=== PATIENT | male | born 1990 | race American Indian/Alaskan Native ===

== ENCOUNTER 2017-09-12 12:08 | Emergency (ER) | payer BC ==
--- NOTE | 2017-09-12 12:20 | ED PDOC ---
Arrival/HPI - General Time Seen by Provider: 09/12/17 12:10 Historian: Patient Past Medical History - Provider Review Nursing Documentation Reviewed: Yes Family/Social History - Physician Review Nursing Documentation Reviewed: Yes Family/Social History: Unknown Family HX Allergies/Home Meds Home Medications: Home Meds Medication Instructions Recorded Confirmed Famotidine [Pepcid] 20 mg PO DAILY 09/12/17 09/12/17 Pantoprazole [Protonix EC Tab] 40 mg PO DAILY 09/12/17 09/12/17 Medical Decision Making ED Course and Treatment: 09/12/17 Impression: Differential Diagnosis included but are not limited to: Plan: -- Reassess and disposition Progress Notes: - Scribe Statement The provider has reviewed the documentation as recorded by the Vikki Schaefer Provider Scribe Attestation: All medical record entries made by the Scribe were at my direction and personally dictated by me. I have reviewed the chart and agree that the record accurately reflects my personal performance of the history, physical exam, medical decision making, and the department course for this patient. I have also personally directed, reviewed, and agree with the discharge instructions and disposition.
[2017-09-12 12:21] VITALS: RESP 19; TEMP 98
[2017-09-12] MEDS ORDERED: Atrop/Hyosc/Scopal/PB Elixir (120 ml) PO STA (12:31)
[2017-09-12] MEDS ORDERED: Sodium Chloride 0.9% 1,000 ML IV STA (12:31)
[2017-09-12] MEDS ORDERED: Alum-Mag Hydrox-Simethicone Susp (30 mL) PO STA (12:31)
--- NOTE | 2017-09-12 13:01 | ED PDOC ---
Arrival/HPI - General Historian: Patient - History of Present Illness Time/Duration: < week Symptom Onset: Gradual Activities at Onset: Light Context: Home <Brandon Delvalle - Last Filed: 09/12/17 14:50> <Priyank Angelo DO - Last Filed: 09/12/17 22:25> - General Chief Complaint: GI Problem Time Seen by Provider: 09/12/17 12:10 - History of Present Illness Narrative History of Present Illness (Text): 09/12/17 12:52 This is a 26 year old male with PMH of gastritis and stomach ulcer presenting to the ER for 2 day history of abdominal pain. He admits to diffuse abdominal pain that is constant and rated 10/10. Pain is associated with nausea, diarrhea and vomiting x6. Patient was at [facility] this morning for similar complaint and discharged. He admits to similar symptoms in the past that occur every few months and resolve spontaneously. He states nothing makes the pain better and nothing makes it worse. He denies CP, SOB, fevers, dizziness, melena, hematemesis, hematochezia, headaches, urinary complaints, swelling and recent sickness. He takes pepcid and protonix for gastritis. PCP is Dr. Tovar (Brandon Delvalle) Past Medical History - Provider Review Nursing Documentation Reviewed: Yes - Cardiac Hx Cardiac Disorders: No - Pulmonary Hx Respiratory Disorders: No - Neurological Hx Neurological Disorder: No - HEENT Hx HEENT Disorder: No - Renal Hx Renal Disorder: No - Endocrine/Metabolic Hx Endocrine Disorders: No - Hematological/Oncological Hx Blood Disorders: No - Integumentary Hx Dermatological Disorder: No - Musculoskeletal/Rheumatological Hx Musculoskeletal Disorders: No - Gastrointestinal Hx Gastrointestinal Disorders: Yes Hx Gastritis: Yes - Genitourinary/Gynecological Hx Genitourinary Disorders: No - Psychiatric Hx Psychophysiologic Disorder: No Hx Substance Use: Yes (CANNABIS) - Surgical History Other/Comment: ENDOSCOPY <Brandon Delvalle - Last Filed: 09/12/17 14:50> Family/Social History - Physician Review Nursing Documentation Reviewed: Yes Family/Social History: Unknown Family HX Smoking Status: Heavy Smoker > 10 Cigarettes Daily Hx Alcohol Use: No Hx Substance Use: Yes (CANNABIS) <Brandon Delvalle - Last Filed: 09/12/17 14:50> Allergies/Home Meds <Brandno Delvalle - Last Filed: 09/12/17 14:50> <Priyank Angelo DO - Last Filed: 09/12/17 22:25> Allergies/Adverse Reactions: Allergies No Known Allergies Allergy (Verified 09/12/17 12:23) Home Medications: Home Meds Medication Instructions Recorded Confirmed Famotidine [Pepcid] 20 mg PO DAILY 09/12/17 09/12/17 Pantoprazole [Protonix EC Tab] 40 mg PO DAILY 09/12/17 09/12/17 Review of Systems - Physician Review All systems were reviewed & negative as marked: Yes - Review of Systems Constitutional: Normal. absent: Fevers Eyes: Normal. absent: Vision Changes ENT: Normal. absent: Hearing Changes Respiratory: Normal. absent: SOB, Cough Cardiovascular: Normal. absent: Chest Pain, Palpitations Gastrointestinal: Abdominal Pain, Diarrhea, Nausea, Vomiting. absent: Constipation, Hematochezia, Hematemesis Genitourinary Male: Normal. absent: Dysuria Musculoskeletal: Normal Skin: Normal Neurological: Normal <Brandon Delvalle - Last Filed: 09/12/17 14:50> Physical Exam Vital Signs Reviewed: Yes Temperature: Afebrile Blood Pressure: Normal Pulse: Regular Respiratory Rate: Normal Appearance: Positive for: Well-Appearing, Non-Toxic, Comfortable Pain Distress: None Mental Status: Positive for: Alert and Oriented X 3 - Systems Exam Head: Present: Atraumatic, Normocephalic Pupils: Present: PERRL Extroacular Muscles: Present: EOMI Conjunctiva: Present: Normal Mouth: Present: Moist Mucous Membranes Neck: Present: Normal Range of Motion Respiratory/Chest: Present: Clear to Auscultation, Good Air Exchange. No: Respiratory Distress, Accessory Muscle Use Cardiovascular: Present: Regular Rate and Rhythm, Normal S1, S2. No: Murmurs Abdomen: Present: Tenderness, Normal Bowel Sounds, Other (tenderness in all four quadrants). No: Distention, Peritoneal Signs, Rebound, Guarding, McBurney' s Point Tender, Rovsing's Sign Present Back: Present: Normal Inspection Upper Extremity: Present: Normal Inspection. No: Cyanosis, Edema Lower Extremity: Present: Normal Inspection. No: Edema Neurological: Present: Speech Normal, Motor Func Grossly Intact, Normal Sensory Function Skin: Present: Warm, Dry, Normal Color. No: Rashes Psychiatric: Present: Alert, Normal Insight, Normal Concentration <Brandon Delvalle - Last Filed: 09/12/17 14:50> Vital Signs Temp Pulse Resp BP Pulse Ox 09/12/17 15:06 98 F 85 19 129/63 100 09/12/17 14:43 98 F 85 19 129/53 L 98 09/12/17 12:21 98 F 64 19 139/90 100 Medical Decision Making <Brandon Delvalle - Last Filed: 09/12/17 14:50> - Lab Interpretations I have reviewed the lab results: Yes - RAD Interpretation Ticket Collector: Radiologist <Priyank Angelo DO - Last Filed: 09/12/17 22:25> ED Course and Treatment: 09/12/17 13:05 Impression: This is a 26 year old male with PMH of gastritis and stomach ulcer presenting to the ER for 2 day history of abdominal pain. Differential not limited to: Hyperemesis cannabinoid syndrome vs gastritis vs gastric ulcer vs gastroenteritis vs appendicitis vs peptic ulcer perforation Plan: -Blood work, lipase -Fluids, zofran and pepcid -CT abdomen -Drug screen, U/A Progress: 09/12/17 14:39 CT abdomen: non specific focal gastritis and under distension is a consideration. Infectious/inflammatory colitis and cystitis cannot be excluded. 09/12/17 14:46 Vital signs are stable and afebrile. Patient is able to walk to the bathroom unassisted but continue to complain of nausea and abdominal pain. Will give reglan. (Brandon Delvalle) 09/12/17 In agreement with resident note, which includes further HPI details. Patient was seen and evaluated with resident, came up with plan and treatment together. (Priyank Angelo DO) - Lab Interpretations Lab Results: 09/12/17 12:30 09/12/17 12:30 Lab Results 09/12/17 13:30: Urine Opiates Screen Negative, Urine Methadone Screen Negative, Ur Barbiturates Screen Negative, Ur Phencyclidine Scrn Negative, Ur Amphetamines Screen Negative, U Benzodiazepines Scrn Negative, U Oth Cocaine Metabols Negative, U Cannabinoids Screen Positive H 09/12/17 13:30: Urine Color Yellow, Urine Appearance Clear, Urine pH 7.5, Ur Specific [place] 1.025, Urine Protein Negative, Urine Glucose (UA) Negative, Urine Ketones 15 H, Urine Blood Negative, Urine Nitrate Negative, Urine Bilirubin Negative, Urine Urobilinogen 1.0 H, Ur Leukocyte Esterase Negative 09/12/17 12:30: Sodium 147, Potassium 3.4 L, Chloride 106, Carbon Dioxide 26, Anion Gap 18, BUN 10, Creatinine 0.8, Est GFR ( Amer) > 60, Est GFR (Non- Af Amer) > 60, Random Glucose 116 H, Calcium 9.8, Magnesium 1.8, Total Bilirubin 0.7, AST 24, ALT 25, Alkaline Phosphatase 89, Total Protein 7.9, Albumin 4.5, Globulin 3.4, Albumin/Globulin Ratio 1.3, Amylase 108, Lipase 100 09/12/17 12:30: WBC 12.6 H, RBC 5.33, Hgb 14.4, Hct 42.4, MCV 79.5 L, MCH 27.0, MCHC 34.0, RDW 15.3 H, Plt Count 368, MPV 10.7, Gran % 87.2 H, Lymph % (Auto) 9.4 L, [place] % (Auto) 3.1, Eos % (Auto) 0.1 L, Baso % (Auto) 0.2, Gran # 10.99 H , Lymph # (Auto) 1.2, [place] # (Auto) 0.4, Eos # (Auto) 0.0, Baso # (Auto) 0.02 - RAD Interpretation Radiology Orders: 09/12/17 12:31 ABD & PELVIS IV CONTRAST ONLY [CT] Stat - Medication Orders Current Medication Orders: Discontinued Medications Al Hydrox/Mg Hydrox/Simethicone (Maalox Plus 30 Ml) 30 ml PO STAT STA Stop: 09/12/17 12:32 Last Admin: 09/12/17 13:03 Dose: 30 ml Belladonna/Phenobarbital ( Elixir) 10 ml PO STAT STA Stop: 09/12/17 12:32 Last Admin: 09/12/17 12:59 Dose: 10 ml Famotidine (Pepcid) 20 mg IVP STAT STA Stop: 09/12/17 12:32 Last Admin: 09/12/17 12:47 Dose: 20 mg IVP Administration Document 09/12/17 12:47 GMI (Rec: 09/12/17 12:47 GMI [id number]) Charges for Administration # of IVP Administrations 1 Sodium Chloride (Sodium Chloride 0.9%) 1,000 mls @ 1,000 mls/hr IV .Q1H STA Stop: 09/12/17 13:30 Last Admin: 09/12/17 12:39 Dose: 1,000 mls/hr Lidocaine HCl (Lidocaine 2% Viscous) 10 ml MM STAT STA Stop: 09/12/17 12:32 Last Admin: 09/12/17 13:03 Dose: 15 ml Metoclopramide HCl (Reglan) 10 mg IVP STAT STA Stop: 09/12/17 14:41 Last Admin: 09/12/17 14:49 Dose: 10 mg Ondansetron HCl (Zofran Inj) 4 mg IVP STAT STA Stop: 09/12/17 12:32 Last Admin: 09/12/17 12:50 Dose: 4 mg - PA / SALVAGER / Resident Statement / has reviewed & agrees with the documentation as recorded. / has examined the patient and agrees with the treatment plan. <Brandon Delvalle - Last Filed: 09/12/17 14:50> - Scribe Statement The provider has reviewed the documentation as recorded by the Scribe <Priyank Angelo DO - Last Filed: 09/12/17 22:25> - Scribe Statement Radha Schaefer Provider Scribe Attestation: All medical record entries made by the Scribe were at my direction and personally dictated by me. I have reviewed the chart and agree that the record accurately reflects my personal performance of the history, physical exam, medical decision making, and the department course for this patient. I have also personally directed, reviewed, and agree with the discharge instructions and disposition. (Priyank Angelo DO) Disposition/Present on Arrival - Present on Arrival History of DVT/PE: No History of Uncontrolled Diabetes: No Urinary Catheter: No History of Decub. Ulcer: No History Surgical Site Infection Following: None <Brandon Delvalle - Last Filed: 09/12/17 14:50> - Present on Arrival Any Indicators Present on Arrival: No - Disposition Have Diagnosis and Disposition been Completed?: Yes Disposition Time: 14:00 <Priyank Angelo DO - Last Filed: 07/22/18 22:25> - Disposition Diagnosis: Gastritis Disposition: HOME/ ROUTINE Condition: GOOD Discharge Instructions (ExitCare): Gastritis (DC) Additional Instructions: PRATIBHA SHAIKH, thank you for letting us take care of you today. Your provider was Priyank Angelo DO and you were treated for abd pain. The emergency medical care you received today was directed at your acute symptoms. If you were prescribed any medication, please fill it and take as directed. It may take several days for your symptoms to resolve. Return to the Emergency Department if your symptoms worsen, do not improve, or if you have any other problems. Please contact your doctor or call one of the physicians/clinics you have been referred to that are listed on the Patient Visit Information form that is included in your discharge packet. Bring any paperwork you were given at discharge with you along with any medications you are taking to your follow up visit. Our treatment cannot replace ongoing medical care by a primary care provider outside of the emergency department. Thank you for allowing the [facility] team to be part of your care today. Follow up with your primary care doctor this week. You may be referred to a material crew supervisor for further testing. Prescriptions: Ondansetron ODT [Zofran ODT] 4 mg PO Q8 PRN #20 odt PRN Reason: Nausea/Vomiting Ranitidine HCl [Zantac] 150 mg PO BID #20 tablet Referrals: Azar Hudson MD [Primary Care Provider] - Follow up with primary Forms: Subject Company ([place]izen [place])
[2017-09-12 13:11] LABS: BASO # 0.02 K/mm3 (0.0-2.0); BASO % 0.2 % (0.0-3.0); EOS % 0.1 % (1.5-5.0); GRAN # 10.99 (1.4-6.5); GRAN % 87.2 % (50.0-68.0); HEMOGLOBIN 14.4 g/dL (14.0-18.0); LYMPH # 1.2 (1.2-3.4); LYMPH % 9.4 % (22.0-35.0); MEAN CELL VOLUME 79.5 fl (80.0-105.0); MEAN PLATELET VOLUME 10.7 fl (7.0-11.0); MONO # 0.4 (0.1-0.6); MONO % 3.1 % (1.0-6.0); RBC 5.33 10^6/uL (3.5-6.1); RED CELL DISTRIBUTION WIDTH 15.3 % (11.5-14.5); WHITE BLOOD COUNT 12.6 10^3/ul (4.5-11.0)
[2017-09-12 13:19] LABS: ALB/GLOB RATIO 1.3 (1.1-1.8); ALBUMIN 4.5 g/dL (3.0-4.8); ALT/SGPT 25 U/L (7-56); AMYLASE 108 U/L (35-125); AST/SGOT 24 U/L (17-59); BLOOD UREA NITROGEN 10 mg/dL (7-21); CALCIUM 9.8 mg/dL (8.4-10.5); GFR AFRICAN-AMERICAN > 60; GFR NON-AFRICAN AMERICAN > 60; LIPASE 100 U/L (23-300)
[2017-09-12] MEDS ORDERED: Iohexol 350 MG/100 ML VIAL ONE (13:24)
[2017-09-12 13:55] LABS: PH,URINE 7.5 (4.7-8.0); URINE BILIRUBIN NEGATIVE (NEGATIVE); URINE BLOOD NEGATIVE (NEGATIVE); URINE GLUCOSE (UA) NEGATIVE (NEGATIVE); URINE LEUKOCYTE ESTERASE NEGATIVE Leu/uL (NEGATIVE); URINE PROTEIN NEGATIVE mg/dL (<30 mg/dL)
[2017-09-12 13:57] LABS: URINE APPEARANCE CLEAR (CLEAR); URINE COLOR YELLOW (YELLOW)
[2017-09-12 14:13] LABS: BARBITURATES, UR NEGATIVE (NEGATIVE); OPIATES, UR NEGATIVE (NEGATIVE)
[2017-09-12 14:24] LABS: BENZODIAZEPINES, UR NEGATIVE (NEGATIVE); PHENCYCLIDINE, UR NEGATIVE (NEGATIVE)
--- NOTE | 2017-09-12 14:28 | CT ---
Date of service: 09/12/2017 PROCEDURE: CT Abdomen and Pelvis with contrast HISTORY: diffuse abdominal pain COMPARISON: None. TECHNIQUE: CT scan of the abdomen and pelvis was performed after administration of intravenous contrast. Oral contrast was not administered. Coronal and sagittal reformatted images were obtained. Contrast dose: 100 mL Omnipaque 350 Radiation dose: Total exam DLP = 723.46 mGy-cm. This CT exam was performed using one or more of the following dose reduction techniques: Automated exposure control, adjustment of the mA and/or kV according to patient size, and/or use of iterative reconstruction technique. FINDINGS: LOWER THORAX: The visualized lungs are clear. LIVER: Normal in size with homogeneous enhancement. No gross lesion or ductal dilatation. GALLBLADDER AND BILE DUCTS: No calcified gallstones. PANCREAS: Normal in size with homogeneous enhancement. No gross lesion or ductal dilatation. SPLEEN: Normal in size with homogeneous enhancement. ADRENALS: No discrete nodules. KIDNEYS AND URETERS: Normal in size with homogeneous enhancement. No hydronephrosis. No solid mass. VASCULATURE: No aortic aneurysm. BOWEL: Evaluation of the bowel is limited in the absence of oral contrast. Allowing for this, there is fluid in the stomach. There is apparent moderate mural thickening in the pylorus. There is gas the duodenal cap. The small bowel loops are normal in caliber. There is apparent mild mural thickening of the transverse colon. The remaining colon is essentially decompressed. APPENDIX: Normal appendix. PERITONEUM: No free fluid. No free air. LYMPH NODES: No enlarged lymph nodes. BLADDER: There is apparent moderate mural thickening of the urinary bladder wall. REPRODUCTIVE: The prostate gland is normal in size. BONES: No acute fracture. Within normal limits for the patient's age. OTHER FINDINGS: None. IMPRESSION: 1. Evaluation of the bowel is limited in the absence of oral contrast. Allowing for this, apparent mural thickening in the gastric pylorus could be related to underdistention however nonspecific focal gastritis is also a consideration. Clinical follow-up and correlation with EGD may be performed as clinically indicated. 2. Apparent mild mural thickening of the transverse colon is also nonspecific and could be related to underdistention however early acute nonspecific infectious/ inflammatory colitis cannot be excluded. Clinical follow-up is advised. 3. Apparent moderate mural thickening of the urinary bladder wall could be related to underdistention however cystitis is a consideration. Please correlate with urine analysis.
[2017-09-12 14:55] VITALS: PULSE 85
[2017-09-12 15:08] VITALS: BP 129/63; O2SAT 100
== END 2017-09-12 15:06 | disposition home or self-care (01) ==
LOC: ED 12:08
DX: K29.70 Gastritis, unspecified, without bleeding (principal); F17.210 Nicotine dependence, cigarettes, uncomplicated
CPT/HCPCS: 74177; 80053; 81003; 82150; 83690; 83735; 85025; 96374; 99285; G0480; J2405; J2765; J7030; Q9967

== ENCOUNTER 2017-12-09 18:02 | Inpatient (IN) | payer BC ==
[2017-12-09 18:16] VITALS: BMI 28.7
[2017-12-09] MEDS ORDERED: Sodium Chloride 0.9% 1,000 ML IV STA ×2 (18:23→23:50)
--- NOTE | 2017-12-09 18:49 | RAD ---
Date of service: 12/09/2017 HISTORY: abd pain COMPARISON: No prior. FINDINGS: LUNGS: The lungs are well inflated and clear. PLEURA: No pleural effusions or pneumothorax. CARDIOVASCULAR: The heart is normal in size. No aortic atherosclerotic calcification present. OSSEOUS STRUCTURES: Within normal limits for the patient's age. VISUALIZED UPPER ABDOMEN: Normal. OTHER FINDINGS: None. IMPRESSION: No active pulmonary disease.
[2017-12-09] MEDS ORDERED: Lidocaine 2% Viscous 100 ml PO STA (19:24)
[2017-12-09] MEDS ORDERED: Atrop/Hyosc/Scopal/PB Elixir (120 ml) PO STA (19:24)
[2017-12-09] MEDS ORDERED: Alum-Mag Hydrox-Simethicone Susp (30 mL) PO STA (19:24)
[2017-12-09 19:46] LABS: BASO # 0.05 K/mm3 (0.0-2.0); BASO % 0.4 % (0.0-3.0); EOS % 0.3 % (1.5-5.0); GRAN # 10.34 (1.4-6.5); GRAN % 85.5 % (50.0-68.0); HEMOGLOBIN 15.4 g/dL (14.0-18.0); LYMPH # 1.3 (1.2-3.4); LYMPH % 10.3 % (22.0-35.0); MEAN CELL VOLUME 80.5 fl (80.0-105.0); MEAN CORPUSCULAR HEMOGLOBIN 26.8 pg (25.0-35.0); MEAN CORPUSCULAR HGB CONC 33.3 g/dl (31.0-37.0); MEAN PLATELET VOLUME 10.2 fl (7.0-11.0); MONO # 0.4 (0.1-0.6); MONO % 3.5 % (1.0-6.0); RBC 5.74 10^6/uL (3.5-6.1); RED CELL DISTRIBUTION WIDTH 15.9 % (11.5-14.5); WHITE BLOOD COUNT 12.1 10^3/ul (4.5-11.0)
[2017-12-09 20:04] LABS: ALB/GLOB RATIO 1.1 (1.1-1.8); ALBUMIN 4.7 g/dL (3.0-4.8); ALT/SGPT 28 U/L (7-56); AST/SGOT 33 U/L (17-59); BLOOD UREA NITROGEN 18 mg/dL (7-21); CALCIUM 10.1 mg/dL (8.4-10.5); GFR NON-AFRICAN AMERICAN > 60; LIPASE 61 U/L (23-300)
[2017-12-09] MEDS ORDERED: Iohexol 350 MG/100 ML VIAL ONE (20:22)
[2017-12-09] MEDS ORDERED: Morphine 4 mg/ml ISec IVP STA ×2 (20:25→22:42)
--- NOTE | 2017-12-09 20:28 | ED PDOC ---
Arrival/HPI - General Historian: Patient - History of Present Illness Narrative History of Present Illness (Text): 12/09/17 20:25 27yr old male presents today with epigastric pain x 3 days with nausea and vomiting x 2 days. pt states he has hx of gastritis. pt denies fever/chills. no cp or sob. pt denies dizziness or weakness. pt states he started vomiting today, and states he vomited 7 times. pt denies back pain. pt states pain is burning and localized to the epigastric region. pt states he has had this same pain multiple times in the past and is being followed by GI. pt states he had endoscopy in august and is taking protonix at home. pt states "they usually give me dilaudid for my pain". pt denies urinary symptoms. no other complaints. Time/Duration: Other (3 days) Symptom Onset: Gradual Symptom Course: Worsening Quality: Aching, Burning Severity Level: Moderate <Breana Anguiano - Last Filed: 12/10/17 01:42> <Chanda Hicks - Last Filed: 12/12/17 13:45> - General Chief Complaint: GI Problem Time Seen by Provider: 12/09/17 18:04 Past Medical History - Provider Review Nursing Documentation Reviewed: Yes - Travel History Have you recently traveled outside [place] w/in the past 3 mons?: No - Cardiac Hx Cardiac Disorders: No - Pulmonary Hx Respiratory Disorders: No - Neurological Hx Neurological Disorder: No - HEENT Hx HEENT Disorder: No - Renal Hx Renal Disorder: No - Endocrine/Metabolic Hx Endocrine Disorders: No - Hematological/Oncological Hx Blood Disorders: No - Integumentary Hx Dermatological Disorder: No - Musculoskeletal/Rheumatological Hx Musculoskeletal Disorders: No - Gastrointestinal Hx Gastrointestinal Disorders: Yes Hx Gastritis: Yes - Genitourinary/Gynecological Hx Genitourinary Disorders: No - Psychiatric Hx Psychophysiologic Disorder: No Hx Substance Use: Yes (CANNABIS) - Surgical History Other/Comment: ENDOSCOPY <Breana Anguiano - Last Filed: 12/10/17 01:42> Family/Social History - Physician Review Nursing Documentation Reviewed: Yes Family/Social History: Unknown Family HX Smoking Status: Heavy Smoker > 10 Cigarettes Daily Hx Alcohol Use: No Hx Substance Use: Yes (CANNABIS) <Breana Anguiano - Last Filed: 12/10/17 01:42> Allergies/Home Meds <Breana Anguiano - Last Filed: 12/10/17 01:42> <HicksJuancarlosChanda - Last Filed: 12/12/17 13:45> Allergies/Adverse Reactions: Allergies No Known Allergies Allergy (Verified 09/12/17 12:23) Home Medications: Home Meds Medication Instructions Recorded Confirmed Famotidine [Pepcid] 20 mg PO DAILY 09/12/17 09/12/17 Pantoprazole [Protonix EC Tab] 40 mg PO DAILY 09/12/17 09/12/17 Review of Systems - Review of Systems Constitutional: absent: Fatigue, Fevers Respiratory: absent: SOB, Cough Cardiovascular: absent: Chest Pain, Palpitations Gastrointestinal: Abdominal Pain, Nausea, Vomiting. absent: Constipation, Diarrhea Genitourinary Male: absent: Dysuria, Frequency, Hematuria Musculoskeletal: absent: Arthralgias, Back Pain, Neck Pain Skin: absent: Rash, Pruritis Neurological: absent: Headache, Dizziness Psychiatric: absent: Anxiety, Depression, Suicidal Ideation <Breana Anguiano - Last Filed: 12/10/17 01:42> Physical Exam Vital Signs Reviewed: Yes Vital Signs Temp Pulse Resp BP Pulse Ox 12/09/17 18:23 97.8 F 71 17 111/70 99 12/09/17 18:16 97.8 F 71 17 111/70 99 Temperature: Afebrile Blood Pressure: Normal Pulse: Regular Respiratory Rate: Normal Appearance: Positive for: Well-Appearing, Non-Toxic, Comfortable Pain Distress: None Mental Status: Positive for: Alert and Oriented X 3 - Systems Exam Head: Present: Atraumatic Mouth: Present: Moist Mucous Membranes Neck: Present: Normal Range of Motion Respiratory/Chest: Present: Clear to Auscultation, Good Air Exchange. No: Respiratory Distress, Accessory Muscle Use Cardiovascular: Present: Regular Rate and Rhythm, Normal S1, S2. No: Murmurs Abdomen: Present: Tenderness (+ minimal epigastric tenderness). No: Distention, Peritoneal Signs, Rebound, Guarding Back: Present: Normal Inspection. No: CVA Tenderness, Midline Tenderness, Paraspinal Tenderness Upper Extremity: Present: Normal ROM Lower Extremity: Present: Normal ROM Neurological: Present: GCS=15, Speech Normal Skin: Present: Warm, Dry, Normal Color. No: Rashes Psychiatric: Present: Alert, Oriented x 3 <Breana Anguiano - Last Filed: 12/10/17 01:42> Vital Signs Temp Pulse Resp BP Pulse Ox 12/10/17 00:11 18 12/09/17 23:15 76 18 122/80 99 12/09/17 20:20 75 18 115/85 99 12/09/17 18:23 97.8 F 71 17 111/70 99 12/09/17 18:16 97.8 F 71 17 111/70 99 <KurtChanda - Last Filed: 12/12/17 13:45> Medical Decision Making ED Course and Treatment: 12/09/17 20:29 Patient is nontoxic well appearing with stable vital signs presenting with severe epigastric abdominal pain CBC: wbc:12.1 CMP: wnl Lipase: wnl Urinalysis: + >80 ketones cxr; FINDINGS: LUNGS: The lungs are well inflated and clear. PLEURA: No pleural effusions or pneumothorax. CARDIOVASCULAR: The heart is normal in size. No aortic atherosclerotic calcification present. OSSEOUS STRUCTURES: Within normal limits for the patient's age. VISUALIZED UPPER ABDOMEN: Normal. OTHER FINDINGS: None. IMPRESSION: No active pulmonary disease. NS iv bolus zofran x2 pt with continued vomiting in er. reglan added x 1 gi cocktail given. Patient reassessment: pt without improvement in pain after medications, slight improvement in vomiting. morphine added. CAT scan: FINDINGS: LUNG BASES: The lung bases appear clear. No pleural effusions are seen. LIVER: Unremarkable. GALLBLADDER AND BILE DUCTS: The gallbladder appears within normal limits. No radioopaque gallstones are seen. No biliary ductal dilatation is evident. PANCREAS: Unremarkable. SPLEEN: Unremarkable. ADRENAL GLANDS: Unremarkable. KIDNEYS, URETERS, AND BLADDER: The kidneys appear within normal limits. There is no hydronephrosis or hydroureter. No urinary calculi are seen. STOMACH AND BOWEL: Thick walled fluid filled colon is noted with involvement of all segments compatible with pancolitis. Infectious and inflammatory etiologies are considered. APPENDIX: No evidence of acute appendicitis on CT examination. PERITONEUM: No free fluid. No free air. LYMPH NODES: No lymphadenopathy is evident. REPRODUCTIVE: Unremarkable as visualized. VASCULATURE: No evidence of abdominal aortic aneurysm. BONES: No aggressive appearing osseous lesion. No acute osseous pathology evident. IMPRESSION: Pancolitis. Infectious and inflammatory etiologies are considered. pt with continued pain; additional morphine added. pt started on rocephin and flagyl IV. Discussed all results with patient in depth. pt agrees to admission. case discussed with dr. guy; accepts admission to med/surg for pancolitis, intractable vomiting with GI consult Impression: Abdominal pain, pancolitis, intractable vomiting admit med/surg - Lab Interpretations Lab Results: 12/09/17 19:15 12/09/17 19:45 Lab Results 12/09/17 19:45: Sodium 143, Potassium 4.0, Chloride 104, Carbon Dioxide 27, Anion Gap 16, BUN 18, Creatinine 0.8, Est GFR ( Amer) > 60, Est GFR (Non- Af Amer) > 60, Random Glucose 114 H, Calcium 10.1, Total Bilirubin 0.7, AST 33, ALT 28, Alkaline Phosphatase 115, Total Protein 9.0 H, Albumin 4.7, Globulin 4.2, Albumin/Globulin Ratio 1.1, Lipase 61 12/09/17 19:15: WBC 12.1 H, RBC 5.74, Hgb 15.4, Hct 46.2, MCV 80.5, MCH 26.8, MCHC 33.3, RDW 15.9 H, Plt Count 354, MPV 10.2, Gran % 85.5 H, Lymph % (Auto) 10.3 L, Powell % (Auto) 3.5, Eos % (Auto) 0.3 L, Baso % (Auto) 0.4, Gran # 10.34 H , Lymph # (Auto) 1.3, Powell # (Auto) 0.4, Eos # (Auto) 0.0, Baso # (Auto) 0.05 - RAD Interpretation Radiology Orders: 12/09/17 18:23 CHEST PORTABLE [RAD] Stat 12/09/17 19:27 ABD & PELVIS IV CONTRAST ONLY [CT] Stat - Medication Orders Current Medication Orders: Discontinued Medications Al Hydrox/Mg Hydrox/Simethicone (Maalox Plus 30 Ml) 30 ml PO STAT STA Stop: 12/09/17 19:25 Last Admin: 12/09/17 19:48 Dose: 30 ml Belladonna/Phenobarbital ( Elixir) 10 ml PO STAT STA Stop: 12/09/17 19:25 Last Admin: 12/09/17 19:56 Dose: Not Given Non-Admin Reason: refused Sodium Chloride (Sodium Chloride 0.9%) 1,000 mls @ 999 mls/hr IV .Q1H1M STA Stop: 12/09/17 19:23 Last Admin: 12/09/17 18:51 Dose: 999 mls/hr eMAR Start Stop Document 12/09/17 18:51 SF (Rec: 12/09/17 18:51 [id number] Intravenous Solution Start Date 12/09/17 Start Time 18:51 End Date 12/09/17 End time 19:52 Total Infusion Time 61 Lidocaine HCl (Lidocaine 2% Viscous) 10 ml PO STAT STA Stop: 12/09/17 19:30 Last Admin: 12/09/17 19:47 Dose: 10 ml Ondansetron HCl (Zofran Inj) 4 mg IVP STAT STA Stop: 12/09/17 18:24 Last Admin: 12/09/17 18:50 Dose: 4 mg IVP Administration Document 12/09/17 18:50 SF (Rec: 12/09/17 18:50 [id number] Charges for Administration # of IVP Administrations 1 Pantoprazole Sodium (Protonix Inj) 40 mg IVP STAT STA Stop: 12/09/17 18:24 Last Admin: 12/09/17 18:50 Dose: 40 mg IVP Administration Document 12/09/17 18:50 SF (Rec: 12/09/17 18:50 [id number] Charges for Administration # of IVP Administrations 1 <Breana Anguiano T - Last Filed: 12/10/17 01:42> - Lab Interpretations Lab Results: 12/09/17 19:15 12/09/17 19:45 Lab Results 12/09/17 22:34: Urine Color Yellow, Urine Appearance Clear, Urine pH 6.5, Ur Specific [place] 1.010, Urine Protein 30 H, Urine Glucose (UA) Negative, Urine Ketones >=80, Urine Blood Negative, Urine Nitrate Negative, Urine Bilirubin Negative, Urine Urobilinogen 0.2, Ur Leukocyte Esterase Negative, Urine RBC TEST NOT PERFORMED, Urine WBC 2 - 5, Ur Epithelial Cells 6 - 8 12/09/17 19:45: Sodium 143, Potassium 4.0, Chloride 104, Carbon Dioxide 27, Anion Gap 16, BUN 18, Creatinine 0.8, Est GFR ( Amer) > 60, Est GFR (Non- Af Amer) > 60, Random Glucose 114 H, Calcium 10.1, Total Bilirubin 0.7, AST 33, ALT 28, Alkaline Phosphatase 115, Total Protein 9.0 H, Albumin 4.7, Globulin 4.2, Albumin/Globulin Ratio 1.1, Lipase 61 12/09/17 19:15: WBC 12.1 H, RBC 5.74, Hgb 15.4, Hct 46.2, MCV 80.5, MCH 26.8, MCHC 33.3, RDW 15.9 H, Plt Count 354, MPV 10.2, Gran % 85.5 H, Lymph % (Auto) 10.3 L, Powell % (Auto) 3.5, Eos % (Auto) 0.3 L, Baso % (Auto) 0.4, Gran # 10.34 H , Lymph # (Auto) 1.3, Powell # (Auto) 0.4, Eos # (Auto) 0.0, Baso # (Auto) 0.05 - RAD Interpretation Radiology Orders: 12/09/17 18:23 CHEST PORTABLE [RAD] Stat 12/09/17 19:27 ABD & PELVIS IV CONTRAST ONLY [CT] Stat - Medication Orders Current Medication Orders: Hydromorphone HCl (Dilaudid) 0.5 mg IVP Q6H PRN PRN Reason: Pain, severe (8-10) Hydromorphone HCl (Dilaudid) 1 mg IVP Q4H PRN PRN Reason: Pain, Mild (1-3) Metronidazole (Flagyl) 500 mg in 100 mls @ 100 mls/hr IVPB Q8 NORRIS; Protocol Last Admin: 12/12/17 13:04 Dose: 100 mls/hr eMAR Start Stop Document 12/12/17 13:04 SES (Rec: 12/12/17 13:[address] [facility] [id number] Intravenous Solution Start Date 12/12/17 Start Time 13:04 End Date 12/12/17 End time 14:04 Total Infusion Time 60 Ceftriaxone Sodium (Rocephin 1 Gram Ivpb) 1 gm in 100 mls @ 100 mls/hr IVPB DAILY NORR[facility]; Protocol Last Admin: 12/12/17 09:43 Dose: 100 mls/hr eMAR Start Stop Document 12/12/17 09:43 SES (Rec: 12/12/17 09:43 [facility] [id number] Intravenous Solution Start Date 12/12/17 Start Time 09:43 End Date 12/12/17 End time 10:43 Total Infusion Time 60 Ondansetron HCl (Zofran Inj) 4 mg IVP Q6H PRN PRN Reason: Nausea/Vomiting Last Admin: 12/11/17 10:21 Dose: 4 mg IVP Administration Document 12/11/17 10:21 AJ (Rec: 12/11/17 10:[address] [facility] [id number] Charges for Administration # of IVP Administrations 1 Pantoprazole Sodium (Protonix Inj) 40 mg IVP DAILY [facility] Last Admin: 12/12/17 09:43 Dose: 40 mg IVP Administration Document 12/12/17 09:43 SES (Rec: 12/12/17 09:44 [facility] [id number] Charges for Administration # of IVP Administrations 1 Sucralfate (Carafate Oral Susp) 1 gm PO 0600,1600 [facility] Last Admin: 12/12/17 05:50 Dose: 1 gm Discontinued Medications Acetaminophen (Tylenol 325mg Tab) 650 mg PO STAT STA Stop: 12/10/17 06:32 Last Admin: 12/10/17 06:42 Dose: 650 mg [facility] Pain/Vitals Document 12/10/17 06:42 PCO (Rec: 12/10/17 06:43 PCO [facility] [id number] Pain Reassessment Is This A Pain ReAssessment? No Sleep Is patient sleeping during reassessment? No Presence of Pain Presence of Pain Yes Pain Scale Used Protocol: [facility] Pain Scale Used Numeric Location Pain Location Body Site Abdomen Description Burning Pain Behavior Moaning Crying Re-Assess: YESIKA Pain/Vitals Document 12/10/17 07:42 PCO (Rec: 12/10/17 23:13 PCO [id number]) Pain Reassessment Is This A Pain ReAssessment? Yes Sleep Is patient sleeping during reassessment? No Presence of Pain Presence of Pain Yes Pain Scale Used Protocol: [facility] Pain Scale Used Numeric Location Upper or Lower Upper Pain Location Body Site Abdomen Description Burning Intensity 4 Al Hydrox/Mg Hydrox/Simethicone (Maalox Plus 30 Ml) 30 ml PO STAT STA Stop: 12/09/17 19:25 Last Admin: 12/09/17 19:48 Dose: 30 ml Belladonna/Phenobarbital ( Elixir) 10 ml PO STAT STA Stop: 12/09/17 19:25 Last Admin: 12/09/17 19:56 Dose: Not Given Non-Admin Reason: refused Hydromorphone HCl (Dilaudid) 0.5 mg IVP Q4H PRN PRN Reason: Pain, moderate (4-7) Last Admin: 12/11/17 10:20 Dose: 0.5 mg [facility] Pain Assessment Document 12/11/17 10:20 (Rec: 12/11/17 10:20 [id number]) Pain Reassessment Is this a pain reassessment? Yes Sleep Is patient sleeping during reassessment? No Presence of Pain Presence of Pain Yes Location Pain Location Body Site Abdomen Description Description Intermittent Intensity of Pain at present 7 Pain Behavior Irritability Alleviating Factors/Management Medication Techniques IVP Administration Document 12/11/17 10:20 AJ (Rec: 12/11/17 10:20 [id number]) Charges for Administration # of IVP Administrations 1 Re-Assess: [facility] Pain Assessment Document 12/11/17 11:20 AJ (Rec: 12/11/17 17:21 [id number][facility] Pain Reassessment Is this a pain reassessment? Yes Sodium Chloride (Sodium Chloride 0.9%) 1,000 mls @ 999 mls/hr IV .Q1H1M STA Stop: 12/09/17 19:23 Last Admin: 12/09/17 18:51 Dose: 999 mls/hr eMAR Start Stop Document 12/09/17 18:51 SF (Rec: 12/09/17 18:51 [id number][facility] Intravenous Solution Start Date 12/09/17 Start Time 18:51 End Date 12/09/17 End time 19:52 Total Infusion Time 61 Metronidazole (Flagyl) 500 mg in 100 mls @ 100 mls/hr IVPB STAT STA; Protocol Stop: 12/09/17 23:40 Ceftriaxone Sodium (Rocephin 1 Gram Ivpb) 1 gm in 100 mls @ 200 mls/hr IVPB STAT STA; Protocol Stop: 12/09/17 23:10 Last Admin: 12/09/17 23:40 Dose: 200 mls/hr eMAR Start Stop Document 12/09/17 23:40 SS (Rec: 12/09/17 23:40 SS [id number]) Intravenous Solution Start Date 12/09/17 Start Time 23:40 End Date 12/10/17 End time 00:10 Total Infusion Time 30 Sodium Chloride (Sodium Chloride 0.9%) 1,000 mls @ 100 mls/hr IV .Q10H STA Stop: 12/10/17 09:49 Last Admin: 12/10/17 00:08 Dose: 100 mls/hr eMAR Start Stop Document 12/10/17 00:08 SS (Rec: 12/10/17 00:08 SS [id number]) Intravenous Solution Start Date 12/10/17 Start Time 00:08 Lidocaine HCl (Lidocaine 2% Viscous) 10 ml PO STAT STA Stop: 12/09/17 19:30 Last Admin: 12/09/17 19:47 Dose: 10 ml Metoclopramide HCl (Reglan) 10 mg IVP STAT STA Stop: 12/09/17 20:38 Last Admin: 12/09/17 20:47 Dose: 10 mg IVP Administration Document 12/09/17 20:47 SF (Rec: 12/09/17 20:47 [id number] Charges for Administration # of IVP Administrations 1 Morphine Sulfate (Morphine) 4 mg IVP STAT STA Stop: 12/09/17 20:26 Last Admin: 12/09/17 20:47 Dose: 4 mg MAR Pain Assessment Document 12/09/17 20:47 SF (Rec: 12/09/17 20:47 [id number][facility] Pain Reassessment Is this a pain reassessment? Yes Sleep Is patient sleeping during reassessment? No Presence of Pain Presence of Pain Yes Description Pain Behavior Moaning Rubbing Site Facial Grimacing IVP Administration Document 12/09/17 20:47 SF (Rec: 12/09/17 20:47 [id number]) Charges for Administration # of IVP Administrations 1 Morphine Sulfate (Morphine) 4 mg IVP STAT STA Stop: 12/09/17 22:43 Last Admin: 12/09/17 22:59 Dose: 4 mg MAR Pain Assessment Document 12/09/17 22:59 SS (Rec: 12/09/17 22:59 SS [id number]) Pain Reassessment Is this a pain reassessment? Yes Sleep Is patient sleeping during reassessment? No Presence of Pain Presence of Pain Yes Pain Scale Used Protocol: PSCALES Pain Scale Used Numeric Location Upper or Lower Upper Pain Location Body Site Abdomen IVP Administration Document 12/09/17 22:59 SS (Rec: 12/09/17 22:59 SS [id number]) Charges for Administration # of IVP Administrations 1 Morphine Sulfate (Morphine) 2 mg IVP ONCE ONE Stop: 12/11/17 18:34 Last Admin: 12/11/17 18:56 Dose: 2 mg MAR Pain Assessment Document 12/11/17 18:56 AJ (Rec: 12/11/17 18:[address] [id number] Pain Reassessment Is this a pain reassessment? Yes Sleep Is patient sleeping during reassessment? No Presence of Pain Presence of Pain Yes Location Pain Location Body Site Abdomen Description Description Intermittent Intensity of Pain at present 7 Pain Behavior Moaning Alleviating Factors/Management Medication Techniques IVP Administration Document 12/11/17 18:56 AJ (Rec: 12/11/17 18:[address] [id number] Charges for Administration # of IVP Administrations 1 Re-Assess: MAR Pain Assessment Document 12/11/17 19:56 MAD (Rec: 12/11/17 20:43 MAD [id number]) Pain Reassessment Is this a pain reassessment? Yes Sleep Is patient sleeping during reassessment? Yes Ondansetron HCl (Zofran Inj) 4 mg IVP STAT STA Stop: 12/09/17 18:24 Last Admin: 12/09/17 18:50 Dose: 4 mg IVP Administration Document 12/09/17 18:50 SF (Rec: 12/09/17 18:50 SF [id number]) Charges for Administration # of IVP Administrations 1 Ondansetron HCl (Zofran Inj) 4 mg IVP STAT STA Stop: 12/10/17 06:31 Last Admin: 12/10/17 06:42 Dose: 4 mg IVP Administration Document 12/10/17 06:42 PCO (Rec: 12/10/17 06:[address] [id number] Charges for Administration # of IVP Administrations 1 Ondansetron HCl (Zofran Inj) 4 mg IVP STAT STA Stop: 12/10/17 09:37 Last Admin: 12/10/17 10:26 Dose: 4 mg IVP Administration Document 12/10/17 10:26 MCV (Rec: 12/10/17 10:[address] [id number] Charges for Administration # of IVP Administrations 1 Pantoprazole Sodium (Protonix Inj) 40 mg IVP STAT STA Stop: 12/09/17 18:24 Last Admin: 12/09/17 18:50 Dose: 40 mg IVP Administration Document 12/09/17 18:50 SF (Rec: 12/09/17 18:50 SF [id number]) Charges for Administration # of IVP Administrations 1 <Chanda Hicks - Last Filed: 12/12/17 13:45> - PA / [employer] / Resident Statement MD/DO has reviewed & agrees with the documentation as recorded. <Chanda Hicks - Last Filed: 12/12/17 13:45> Disposition/Present on Arrival - Present on Arrival Any Indicators Present on Arrival: No History of DVT/PE: No History of Uncontrolled Diabetes: No Urinary Catheter: No History of Decub. Ulcer: No History Surgical Site Infection Following: None - Disposition Have Diagnosis and Disposition been Completed?: Yes Disposition Time: 23:00 Patient Plan: Admission <Breana Anguiano - Last Filed: 12/10/17 01:42> <Chanda Hicks - Last Filed: 12/12/17 13:45> - Disposition Diagnosis: Pancolitis, Intractable vomiting Disposition: HOSPITALIZED Condition: FAIR
[2017-12-09] MEDS ORDERED: cefTRIAXone 1 gm 1 GM/100 ML BAG IVPB STA (22:41)
[2017-12-09] MEDS ORDERED: metroNIDAZOLE IV 500 mg/100 ml 500 MG/100 ML BAG IVPB STA (22:41)
[2017-12-09 22:44] LABS: PH,URINE 6.5 (4.7-8.0); URINE BILIRUBIN NEGATIVE (NEGATIVE); URINE BLOOD NEGATIVE (NEGATIVE); URINE GLUCOSE (UA) NEGATIVE (NEGATIVE); URINE LEUKOCYTE ESTERASE NEGATIVE Leu/uL (NEGATIVE); URINE PROTEIN 30 mg/dL (<30 mg/dL); URINE UROBILINOGEN 0.2 E.U./dL (<1 E.U./dL)
[2017-12-09 22:45] LABS: URINE APPEARANCE CLEAR (CLEAR); URINE COLOR YELLOW (YELLOW)
--- NOTE | 2017-12-10 10:13 | CARD ---
APPROVED REPORT Date of service: 12/09/2017 EKG Measurement Heart [id number] <Conclusion> Normal sinus rhythm Normal ECG
[2017-12-10] MEDS: HYDROmorphone 0.5 mg/0.5 ml ISec IVP PRN ×3 (10:27→20:50)
--- NOTE | 2017-12-10 10:54 | CT ---
Date of service: 12/09/2017 PROCEDURE: CT Abdomen and Pelvis with contrast HISTORY: abd pain COMPARISON: CT abdomen pelvis with IV contrast performed 09/12/17 TECHNIQUE: Contrast dose: 949.87 Radiation dose: Total exam DLP = 949.87 mGy-cm. This CT exam was performed using one or more of the following dose reduction techniques: Automated exposure control, adjustment of the mA and/or kV according to patient size, and/or use of iterative reconstruction technique. FINDINGS: LOWER THORAX: No visible consolidation, pleural effusion, or pneumothorax. LIVER: Unremarkable. GALLBLADDER AND BILE DUCTS: Unremarkable. PANCREAS: Unremarkable. No gross lesion or ductal dilatation. SPLEEN: Unremarkable. ADRENALS: Unremarkable. No mass. KIDNEYS AND URETERS: The kidneys enhance symmetrically. No hydronephrosis or obstructing calculus identified. VASCULATURE: No aortic aneurysm. No atherosclerotic calcification or mural plaque present. BOWEL: Stomach is nondistended. Lack of oral contrast limits evaluation for bowel pathology. Bowel loops appear within normal limits of caliber without evidence of obstruction. Diffuse colonic wall thickening appears consistent with colitis (i.e. Infectious, inflammatory, ischemic). APPENDIX: The appendix appears within normal limits of caliber. No secondary signs of acute appendicitis. PERITONEUM: No significant free fluid. No definite free air. LYMPH NODES: No bulky adenopathy identified. BLADDER: Unremarkable. REPRODUCTIVE: Unremarkable. BONES: No acute osseous abnormality is detected. OTHER FINDINGS: None. IMPRESSION: Diffuse colonic wall thickening appears consistent with colitis (i.e. Infectious, inflammatory, ischemic). Preliminary impression was provided by [employer].
--- NOTE | 2017-12-10 11:34 | CP.PCM.CON ---
<Keanu De La Cruz - Last Filed: 12/10/17 18:06> History of Present Illness - History of Present Illness History of Present Illness: PGY-4 GI Fellow Consult Note Pt is a 27 y/o M Pwith h/o gastritis, stomach ulcer complaining of 2-3d of vomiting associated with epigastric pain. Reports no initiating factors (no new foods or recent trauma). States symptoms started with clear, nb/nb emesis followed by epigastric pain. Describes pain as a burning, non radiating sensation rated 9/10. No relation to food or BM. After 6-7 episodes of vomiting patient noticed red streaks in his vomit as well. Denies any large volume hematemesis. No relief with ondansetron or ppi which he takes outpatient. States hot showers make him feel better as well. Denies any alcohol/tobacco use but does smoke marijuana over 3x/d. States he has a long history of abdominal pain, dating over 2 years ago. Has been to [facility] and [facility] multiple times over the last 2 years. States he had over 4 EGDs done and possibly one CN in the last 2 years. Reports inflammation of the stomach, and a small ulcer during the last EGD in 08/2017 done in the [facility] Follows Dr. Reyes as outpatient. Denies any history of Crohns/UC/GERD. Reports no odonophagia/dysphagia, no recent NSAID use. Denies any brbpr or melanotic stool. Last BM yesterday soft non bloody. Otherwise, denies any fevesr, chills, cp, sob, diarrhea, constipation, urinary complaints, or weight loss. 12 point ROS negative other than stated above PMHx: Gastritis, stomach ulcer SurgHX: Denies Home meds: Ranitidine; pantoprazole; Zofran; Famotidine Allergies: NKDA Social Hx: Smokes marijuana 3x/d for many years, denies any alcohol, tobacco, or illicit drug use Family Hx: Denies any family hx of UC/Crohns/Colon CA Past Patient History - Past Social History Smoking Status: Heavy Smoker > 10 Cigarettes Daily - CARDIAC Hx Cardiac Disorders: No - PULMONARY Hx Respiratory Disorders: No - NEUROLOGICAL Hx Neurological Disorder: No - HEENT Hx HEENT Problems: No - RENAL Hx Chronic Kidney Disease: No - ENDOCRINE/METABOLIC Hx Endocrine Disorders: No - HEMATOLOGICAL/ONCOLOGICAL Hx Blood Disorders: No - INTEGUMENTARY Hx Dermatological Problems: No - MUSCULOSKELETAL/RHEUMATOLOGICAL Hx Musculoskeletal Disorders: No - GASTROINTESTINAL Hx Gastrointestinal Disorders: Yes Hx Gastritis: Yes - GENITOURINARY/GYNECOLOGICAL Hx Genitourinary Disorders: No - PSYCHIATRIC Hx Psychophysiologic Disorder: No Hx Substance Use: Yes (CANNABIS) - SURGICAL HISTORY Other/Comment: ENDOSCOPY Meds Allergies/Adverse Reactions: Allergies Allergy/AdvReac Type Severity Reaction Status Date / Time No Known Allergies Allergy Verified 09/12/17 12:23 - Medications Medications: Current Medications Hydromorphone HCl (Dilaudid) 0.5 mg IVP Q4H PRN PRN Reason: Pain, moderate (4-7) Last Admin: 12/10/17 10:27 Dose: 0.5 mg Ondansetron HCl (Zofran Inj) 4 mg IVP Q6H PRN PRN Reason: Nausea/Vomiting Pantoprazole Sodium (Protonix Inj) 40 mg IVP DAILY [facility] Last Admin: 12/10/17 10:31 Dose: 40 mg Physical Exam - Constitutional Appears: Well, Non-toxic, No Acute Distress - Head Exam Head Exam: ATRAUMATIC - Eye Exam Eye Exam: EOMI. absent: Conjunctival injection, Scleral icterus - ENT Exam ENT Exam: Mucous Membranes Moist, Normal External Ear Exam. absent: Mucous Membranes Dry - Respiratory Exam Respiratory Exam: Clear to Auscultation Bilateral, NORMAL BREATHING PATTERN. absent: Accessory Muscle Use, Respiratory Distress - Cardiovascular Exam Cardiovascular Exam: REGULAR RHYTHM, RRR - GI/Abdominal Exam GI & Abdominal Exam: Normal Bowel Sounds, Soft. absent: Bruit, Diminished Bowel Sounds, Distended, Firm, Guarding, Hernia, Organomegaly, Tenderness - Rectal Exam Additional comments: pt declined - Extremities Exam Extremities exam: Positive for: normal inspection. Negative for: pedal edema - Neurological Exam Neurological exam: Alert, CN II-XII Intact - Psychiatric Exam Psychiatric exam: Normal Affect, Normal Mood - Skin Skin Exam: Intact, Normal Color Results - Vital Signs Recent Vital Signs: Last Vital Signs Temp 98.9 F 12/10/17 06:00 Pulse 82 12/10/17 06:00 Resp 18 12/10/17 06:00 BP 150/87 12/10/17 06:00 Pulse Ox 99 12/10/17 06:00 - Labs Result Diagrams: 12/09/17 19:15 12/09/17 19:45 Labs: Laboratory Results - last 24 hr 12/09/17 12/09/17 12/09/17 19:15 19:45 22:34 WBC 12.1 H RBC 5.74 Hgb 15.4 Hct 46.2 MCV 80.5 MCH 26.8 MCHC 33.3 RDW 15.9 H Plt Count 354 MPV 10.2 Gran % 85.5 H Lymph % (Auto) 10.3 L Coke % (Auto) 3.5 Eos % (Auto) 0.3 L Baso % (Auto) 0.4 Gran # 10.34 H Lymph # (Auto) 1.3 Coke # (Auto) 0.4 Eos # (Auto) 0.0 Baso # (Auto) 0.05 Sodium 143 Potassium 4.0 Chloride 104 Carbon Dioxide 27 Anion Gap 16 BUN 18 Creatinine 0.8 Est GFR ( Amer) > 60 Est GFR (Non-Af Amer) > 60 Random Glucose 114 H Calcium 10.1 Total Bilirubin 0.7 AST 33 ALT 28 Alkaline Phosphatase 115 Total Protein 9.0 H Albumin 4.7 Globulin 4.2 Albumin/Globulin Ratio 1.1 Lipase 61 Urine Color Yellow Urine Appearance Clear Urine pH 6.5 Ur Specific [place] 1.010 Urine Protein 30 H Urine Glucose (UA) Negative Urine Ketones >=80 Urine Blood Negative Urine Nitrate Negative Urine Bilirubin Negative Urine Urobilinogen 0.2 Ur Leukocyte Esterase Negative Urine RBC TEST NOT PERFORMED Urine WBC 2 - 5 Ur Epithelial Cells 6 - 8 Assessment & Plan - Assessment and Plan (Free Text) Assessment: 27 y/o M 2 year hx gastritis, stomach ulcer p/w 2-3d of vomiting associated with epigastric pain. #Vomiting; Epigastric pain: CTAP with possible pancolitis vs underdistention. Slightly elevated WBC however possible hemoconcentration. Vitals stable., Hgb/Hct stable, unlikely UGIB. Broad differential for intractable nausea/vomiting. Would continue current treatment for infectious colitis given labwork and CT. Possible gastritis/ulcer given history, would like to obtain collateral from prior EGDs (most recent 08/2017) prior to further endoscopic evaluation. No new meds. Unlikely SBO however gastroparesis on differential. If prior egds and workup normal from recent hospitalizations, would consider cannabinoid hyperemesis syndrome as symptoms somewhat correlate with marijuana use and improvement with hot showers. Topical capsaicin (around umbilicus) has been shown to improve symptoms in case studies, could consider. Plan: - Obtain collateral/other records+EGDs from [place]/Dr. Reyes - Continue supportive care with IVF and antiemetics - Monitor Qtc if continues to use zofran - Continue abx for possible colitis. Likely de-escalate if WBC downtrends and symptoms improve Pt seen and examined with Dr. North; see attestation for further recs/changes <Robert North V - Last Filed: 12/12/17 23:30> Meds - Medications Medications: Current Medications Hydromorphone HCl (Dilaudid) 0.5 mg IVP Q6H PRN PRN Reason: Pain, severe (8-10) Metronidazole (Flagyl) 500 mg in 100 mls @ 100 mls/hr IVPB Q8 [facility]; Protocol Last Admin: 12/11/17 21:45 Dose: 100 mls/hr Ceftriaxone Sodium (Rocephin 1 Gram Ivpb) 1 gm in 100 mls @ 100 mls/hr IVPB DAILY [facility]; Protocol Last Admin: 12/11/17 10:19 Dose: 100 mls/hr Ondansetron HCl (Zofran Inj) 4 mg IVP Q6H PRN PRN Reason: Nausea/Vomiting Last Admin: 12/11/17 10:21 Dose: 4 mg Pantoprazole Sodium (Protonix Inj) 40 mg IVP DAILY [facility] Last Admin: 12/11/17 10:19 Dose: 40 mg Sucralfate (Carafate Oral Susp) 1 gm PO 0600,1600 [facility] Last Admin: 12/11/17 17:55 Dose: 1 gm Results - Vital Signs Recent Vital Signs: Last Vital Signs Temp 97.7 F 12/11/17 14:00 Pulse 57 L 12/11/17 14:00 Resp 18 12/11/17 14:00 BP 118/71 12/11/17 14:00 Pulse Ox 96 12/11/17 14:00 - Labs Result Diagrams: 12/12/17 05:00 12/12/17 05:00 Labs: Laboratory Results - last 24 hr 12/11/17 12/11/17 06:00 06:00 Iron 76 TIBC 304 % Saturation 25 Triglycerides 96 Cholesterol 151 LDL Cholesterol Direct 106 HDL Cholesterol 29 Vitamin B12 567 Folate 13.1 Attending/Attestation - Attestation I have personally seen and examined this patient.: Yes I have fully participated in the care of the patient.: Yes I have reviewed all pertinent clinical information: Yes Notes (Text): This is an addendum to GI consult report dictated by the GI Fellow.The patient was seen and examined earlier. Medical records, lab studies, imagings were reviewed. Last 24 hours events reviewed. Agreed with the above treatment plan as outlined in GI Fellow 's notes with the addition of the following One of the recurrent admissions for epigastric pain As per patient four endoscopies done in the past and one colonoscopy On examination abdomen soft mild tenderness in the epigastric area Even though CT scan was suggestive of possible colitis Clinical symptoms are not typical Previous imaging studies were also reviewed Continue PPI clear liquid diet Will get the records from [facility] and [facility] before proceeding with repeat EGD again 12/11/17 21:50 12/12/17 23:27
[2017-12-11] MEDS: HYDROmorphone 0.5 mg/0.5 ml ISec IVP PRN ×2 (02:07→10:20)
[2017-12-11] MEDS: metroNIDAZOLE IV 500 mg/100 ml 500 MG/100 ML BAG IVPB SCH ×3 (05:54→21:45)
[2017-12-11 06:59] LABS: IRON 76 ug/dL (45-180)
[2017-12-11 07:14] LABS: % IRON SATURATION 25 % (20-55); TOTAL IRON BINDING CAPACITY 304 ug/dL (261-462)
[2017-12-11] MEDS: cefTRIAXone 1 gm 1 GM/100 ML BAG IVPB SCH (10:19)
[2017-12-11] MEDS: ERYthromycin Base 250 MG DR Cap PO SCH ×2 (12:00→17:55)
--- NOTE | 2017-12-11 12:04 | CP.PCM.PN ---
<Yohan Diaz - Last Filed: 12/11/17 11:55> Subjective - Date & Time of Evaluation Date of Evaluation: 12/11/17 Time of Evaluation: 11:55 - Subjective Subjective: Still having n/v with some abdominal pain. Objective - Vital Signs/Intake and Output Vital Signs (last 24 hours): Temp Pulse Resp BP Pulse Ox 97.8 F 54 L 18 133/87 98 12/11/17 08:42 12/11/17 08:42 12/11/17 08:42 12/11/17 08:42 12/11/17 08:42 Intake and Output: 12/11/17 12/11/17 06:59 18:59 Intake Total 0 Balance 0 - Medications Medications: Current Medications Metronidazole (Flagyl) 500 mg in 100 mls @ 100 mls/hr IVPB Q8 [facility]; Protocol Last Admin: 12/11/17 05:54 Dose: 100 mls/hr Ceftriaxone Sodium (Rocephin 1 Gram Ivpb) 1 gm in 100 mls @ 100 mls/hr IVPB DAILY [facility]; Protocol Last Admin: 12/11/17 10:19 Dose: 100 mls/hr Ondansetron HCl (Zofran Inj) 4 mg IVP Q6H PRN PRN Reason: Nausea/Vomiting Last Admin: 12/11/17 10:21 Dose: 4 mg Pantoprazole Sodium (Protonix Inj) 40 mg IVP DAILY [facility] Last Admin: 12/11/17 10:19 Dose: 40 mg Sucralfate (Carafate Oral Susp) 1 gm PO 0600,1600 [facility] - Labs Labs: 12/09/17 19:15 12/09/17 19:45 - Constitutional Appears: Non-toxic - Head Exam Head Exam: NORMAL INSPECTION - Eye Exam Eye Exam: Normal appearance - Respiratory Exam Respiratory Exam: Clear to Ausculation Bilateral, NORMAL BREATHING PATTERN - Cardiovascular Exam Cardiovascular Exam: REGULAR RHYTHM, +S1, +S2 - GI/Abdominal Exam GI & Abdominal Exam: Soft, Normal Bowel Sounds. absent: Tenderness - Extremities Exam Extremities Exam: Normal Inspection - Neurological Exam Neurological Exam: Alert, Awake - Psychiatric Exam Psychiatric exam: Normal Mood - Skin Skin Exam: Dry, Intact Assessment and Plan - Assessment and Plan (Free Text) Assessment: 27 y/o M 2 year hx gastritis, stomach ulcer p/w 2-3d of vomiting associated with epigastric pain. #Vomiting; Epigastric pain: CTAP with possible pancolitis vs underdistention. Slightly elevated WBC however possible hemoconcentration. Vitals stable., Hgb/Hct stable, unlikely UGIB. Broad differential for intractable nausea/vomiting. Would continue current treatment for infectious colitis given labwork and CT. Possible gastritis/ulcer given history, would like to obtain collateral from prior EGDs (most recent 08/2017) prior to further endoscopic e valuation. No new meds. Unlikely SBO however gastroparesis on differential. If prior egds and workup normal from recent hospitalizations, would consider cannabinoid hyperemesis syndrome as symptoms somewhat correlate with marijuana use and improvement with hot showers. Topical capsaicin (around umbilicus) has been shown to improve symptoms in case studies, could consider. Plan: - Obtain collateral/other records+EGDs from [place]/Dr. Reyes - Continue antiemetics. Add erythromycin and carafate to help promote motility and sooth the stomach. - Start liquid diet, instructed to take small drinks every 15 minutes, to sit up and walk around nurses station to help motility. - Avoid opiates - Advised to avoid THC products - Monitor Qtc if continues to use zofran - Continue abx for possible colitis. Likely de-escalate if WBC downtrends and symptoms improve Pt seen and examined with Dr. North; see attestation for further recs/changes <Robert North V - Last Filed: 12/12/17 23:33> Objective - Vital Signs/Intake and Output Vital Signs (last 24 hours): Temp Pulse Resp BP Pulse Ox 97.7 F 57 L 18 118/71 96 12/11/17 14:00 12/11/17 14:00 12/11/17 14:00 12/11/17 14:00 12/11/17 14:00 - Medications Medications: Current Medications Hydromorphone HCl (Dilaudid) 0.5 mg IVP Q6H PRN PRN Reason: Pain, severe (8-10) Metronidazole (Flagyl) 500 mg in 100 mls @ 100 mls/hr IVPB Q8 [facility]; Protocol Last Admin: 12/11/17 21:45 Dose: 100 mls/hr Ceftriaxone Sodium (Rocephin 1 Gram Ivpb) 1 gm in 100 mls @ 100 mls/hr IVPB DAILY [facility]; Protocol Last Admin: 12/11/17 10:19 Dose: 100 mls/hr Ondansetron HCl (Zofran Inj) 4 mg IVP Q6H PRN PRN Reason: Nausea/Vomiting Last Admin: 12/11/17 10:21 Dose: 4 mg Pantoprazole Sodium (Protonix Inj) 40 mg IVP DAILY [facility] Last Admin: 12/11/17 10:19 Dose: 40 mg Sucralfate (Carafate Oral Susp) 1 gm PO 0600,1600 [facility] Last Admin: 12/11/17 17:55 Dose: 1 gm - Labs Labs: 12/09/17 19:15 12/09/17 19:45 Attending/Attestation - Attestation I have personally seen and examined this patient.: Yes I have fully participated in the care of the patient.: Yes I have reviewed all pertinent clinical information, including history, physical exam and plan: Yes Notes (Text): This is an addendum to GI progress report dictated by the GI Fellow.The patient was seen and examined earlier. Medical records, lab studies, imagings were reviewed. Last 24 hours events reviewed. Agreed with the above treatment plan as outlined in GI Fellow 's notes with the addition of the following Feeling slightly better on clear liquid diet On empiric antibiotic coverage Awaiting for endo reports from [facility] and [place] On examination abdomen soft and mild tenderness on deep palpation 12/11/17 21:50 12/12/17 23:31
[2017-12-11 14:53] LABS: FOLATE 13.1 ng/mL
--- NOTE | 2017-12-11 15:08 | HP ---
DATE OF EXAM: 12/10/2017 The patient was seen and examined on the bedside on 12/10/2017. CHIEF COMPLAINT: Abdominal pain. HISTORY OF PRESENT ILLNESS: Mr. Shyla Martel, a 27-year-old male who came to the emergency room with epigastric pain for 3 days. He has now been vomiting for 2 days. The patient states that he has a history of gastritis. Denies fever, chills, and no chest pain or shortness of breath. No dizziness. No weakness. The patient states that he started vomiting on the day of admission and stated that vomiting 7 times. The patient denies back pain. No fever. No chills. The patient's pain is burning and localized to the epigastric region. According to him, he had his same pain multiple times in the past and being followed up by GI. The patient states that he had endoscopy in 08/2017 and he is taking Protonix at home. He states that they usually gave him Dilaudid for pain. Denies urinary symptoms or other components. I saw the patient in the room. We called GI consult, given pain medication. Has similar abdominal pain. PAST MEDICAL HISTORY: As above. FAMILY HISTORY: Father and mother, noncontributory. HABITS: Having smoking more than 10 cigarettes a day. Alcohol, no. Substance abuse, cannabis. ALLERGIES: THE PATIENT IS NOT ALLERGIC WITH ANY MEDICATIONS. HOME MEDICATIONS: Pepcid and Protonix. REVIEW OF SYSTEMS: The patient was seen and examined at the bedside, complaining about abdominal pain. No fatigue or fever. No shortness of breath or cough. No chest pain. No palpitation. No constipation or diarrhea, just abdominal pain, nausea, and vomiting. No dysuria, frequency, or hematuria. No arthralgia, back pain, or neck pain. No rash or pruritus. No headache or dizziness. No anxiety, depression, or suicidal ideation. PHYSICAL EXAMINATION: VITAL SIGNS: Temperature 97.2, pulse 71, respiratory rate 18, and blood pressure 111/70. HEENT: Head, normocephalic and atraumatic. Eyes, PERRLA. Extraocular muscles intact. Conjunctivae clear. Nose patent. Mucous membranes moist. NECK: Supple. No carotid bruit, JVD or thyromegaly. CHEST: Bilaterally symmetrical. HEART: S1 and S2 positive. LUNGS: Clear to auscultation. ABDOMEN: Soft. Tenderness all over. Bowel sounds positive. EXTREMITIES: No edema. No cyanosis. NEUROLOGICAL: The patient is awake and alert. Moving all 4 extremities. No focal deficits. LABORATORY DATA: White blood cells 12.1, hemoglobin 15.4, hematocrit 46.2, platelets 354. Sodium 146, potassium 4.0, BUN 18, creatinine 0.8, and glucose 114. ASSESSMENT AND PLAN: Mr. Shyla Martel is a 27-year-old male with leukocytosis, hyperglycemia, and proteinuria, came with abdominal pain. CAT scan of abdomen and pelvis done in emergency room, showed a diffuse colonic wall thickening, appears consistent with colitis. Infectious, inflammatory or ischemic. The patient has history of gastritis, stomach ulcer, may be the patient has pancolitis. His recent esophagogastroduodenoscopy was done in 08/2017, may be overuse of cannabinoid, hyperemesis syndrome, asymptomatic somewhat correlated marijuana use and improved with hot shower. Continue supportive care. IV fluid. Continue antibiotics for possibly likely infectious colitis. Monitor white blood cell. Repeat labs. We will follow up. Charlotte Brenner MD MTDD
[2017-12-11] MEDS: Sucralfate 1 gm/10 ml Oral Susp UD PO SCH (17:55)
[2017-12-11] MEDS ORDERED: Morphine 2 mg/ml ISec IVP ONE (18:33)
[2017-12-11] MEDS ORDERED: HYDROmorphone 0.5 mg/0.5 ml ISec IVP PRN (19:48)
[2017-12-12] MEDS: ERYthromycin Base 250 MG DR Cap PO SCH ×4 (01:00→17:08)
[2017-12-12] MEDS: metroNIDAZOLE IV 500 mg/100 ml 500 MG/100 ML BAG IVPB SCH ×3 (05:50→21:49)
[2017-12-12] MEDS: Sucralfate 1 gm/10 ml Oral Susp UD PO SCH ×2 (05:50→16:11)
[2017-12-12 06:32] LABS: BLOOD UREA NITROGEN 17 mg/dL (7-21); CALCIUM 9.4 mg/dL (8.4-10.5); GFR NON-AFRICAN AMERICAN > 60
[2017-12-12 06:35] LABS: HEMOGLOBIN 14.6 g/dL (14.0-18.0); MEAN CORPUSCULAR HEMOGLOBIN 26.8 pg (25.0-35.0); MEAN CORPUSCULAR HGB CONC 32.7 g/dl (31.0-37.0); MEAN PLATELET VOLUME 9.9 fl (7.0-11.0); RBC 5.44 10^6/uL (3.5-6.1); RED CELL DISTRIBUTION WIDTH 14.8 % (11.5-14.5); WHITE BLOOD COUNT 9.3 10^3/ul (4.5-11.0)
[2017-12-12] MEDS: cefTRIAXone 1 gm 1 GM/100 ML BAG IVPB SCH (09:43)
--- NOTE | 2017-12-12 11:58 | PN ---
DATE: 12/12/2017 SUBJECTIVE: The patient was seen and examined on the bedside on 12/11/2017, looking comfortable. The patient is having still nausea, vomiting with some abdominal pain that comes and goes. No fever. No chills. No headache. No dizziness. PHYSICAL EXAMINATION: VITAL SIGNS: Temperature 97.8, pulse 54, respiratory rate 18, blood pressure 133/87, pulse oximetry 98. HEENT: Head normocephalic, atraumatic. Eyes PERRLA. Extraocular muscles intact. Conjunctivae clear. Nose patent. Mucous membrane moist. NECK: Supple. No carotid bruit. No JVD or thyromegaly. CHEST: Bilaterally symmetrical. HEART: S1 and S2 positive. LUNGS: Clear to auscultation. ABDOMEN: Soft. Bowel sounds positive. No organomegaly. EXTREMITIES: No edema. No cyanosis. NEUROLOGICAL: The patient is awake and alert. Follows simple commands. MEDICATIONS: Flagyl, Rocephin, Zofran, Protonix, Carafate. LABORATORY DATA: White blood cells 12.1, hemoglobin 15.4, hematocrit 46.2, platelet 354. Sodium 143, potassium 4, BUN 18, creatinine 0.8, glucose 114. ASSESSMENT AND PLAN: Mr. Shyla Martel, 27-year-old male with leukocytosis, hyperglycemia, history of gastritis, gastric ulcers. May be the patient has pancolitis. Getting antibiotics. GI is on the case. Waiting for Dr. North's input. CAT scan of abdomen and pelvis done. We will call surgical consult. Repeat labs. We will follow up. Charlotte Brenner MD
--- NOTE | 2017-12-12 12:31 | CP.PCM.PN ---
<Mesfin Diazhan - Last Filed: 12/12/17 12:27> Subjective - Date & Time of Evaluation Date of Evaluation: 12/12/17 Time of Evaluation: 12:27 - Subjective Subjective: Patient is improved today. tolerating diet w/o emesis. he states the carafate is helping his stomach. He had non bloody BM today. Objective - Vital Signs/Intake and Output Vital Signs (last 24 hours): Temp Pulse Resp BP Pulse Ox 97.4 F L 61 20 129/78 95 12/12/17 08:08 12/12/17 08:08 12/12/17 08:08 12/12/17 08:08 12/12/17 08:08 Intake and Output: 12/12/17 12/12/17 06:59 18:59 Intake Total 480 Balance 480 - Medications Medications: Current Medications Hydromorphone HCl (Dilaudid) 0.5 mg IVP Q6H PRN PRN Reason: Pain, severe (8-10) Hydromorphone HCl (Dilaudid) 1 mg IVP Q4H PRN PRN Reason: Pain, Mild (1-3) Metronidazole (Flagyl) 500 mg in 100 mls @ 100 mls/hr IVPB Q8 [facility]; Protocol Last Admin: 12/12/17 05:50 Dose: 100 mls/hr Ceftriaxone Sodium (Rocephin 1 Gram Ivpb) 1 gm in 100 mls @ 100 mls/hr IVPB DAILY [facility]; Protocol Last Admin: 12/12/17 09:43 Dose: 100 mls/hr Ondansetron HCl (Zofran Inj) 4 mg IVP Q6H PRN PRN Reason: Nausea/Vomiting Last Admin: 12/11/17 10:21 Dose: 4 mg Pantoprazole Sodium (Protonix Inj) 40 mg IVP DAILY [facility] Last Admin: 12/12/17 09:43 Dose: 40 mg Sucralfate (Carafate Oral Susp) 1 gm PO 0600,1600 [facility] Last Admin: 12/12/17 05:50 Dose: 1 gm - Labs Labs: 12/12/17 05:00 12/12/17 05:00 - Constitutional Appears: Well, Non-toxic - Head Exam Head Exam: NORMAL INSPECTION - Eye Exam Eye Exam: Normal appearance - Neck Exam Neck Exam: Normal Inspection - Respiratory Exam Respiratory Exam: Clear to Ausculation Bilateral, NORMAL BREATHING PATTERN - Cardiovascular Exam Cardiovascular Exam: REGULAR RHYTHM, +S1, +S2 - GI/Abdominal Exam GI & Abdominal Exam: Soft, Normal Bowel Sounds. absent: Tenderness - Extremities Exam Extremities Exam: Normal Inspection - Neurological Exam Neurological Exam: Alert, Awake, Oriented x3 - Psychiatric Exam Psychiatric exam: Normal Affect, Normal Mood - Skin Skin Exam: Dry, Normal Color Assessment and Plan - Assessment and Plan (Free Text) Assessment: 27 y/o M 2 year hx gastritis, stomach ulcer p/w 2-3d of vomiting associated with epigastric pain. #Vomiting; Epigastric pain: CTAP with possible pancolitis vs underdistention. Slightly elevated WBC however possible hemoconcentration. Vitals stable., Hgb/Hct stable, unlikely UGIB. Broad differential for intractable nausea/vomiting. Would continue current treatment for infectious colitis given labwork and CT. Possible gastritis/ulcer given history, would like to obtain collateral from prior EGDs (most recent 08/2017) prior to further endoscopic evaluation. No new meds. Unlikely SBO however gastroparesis on differential. If prior egds and workup normal from recent hospitalizations, would consider cannabinoid hyperemesis syndrome as symptoms somewhat correlate with marijuana use and improvement with hot showers. Topical capsaicin (around umbilicus) has been shown to improve symptoms in case studies, could consider. Plan: - Obtain collateral/other records+EGDs from [facility]/Dr. Reyes - Continue antiemetics. AContinue carafate to help sooth the stomach. - Stomach pain is likely from hx of gastritis/PUD or from retching. - Advance to full liquid diet, instructed to take small drinks every 15 minutes, to sit up and walk around nurses station to help motility. - Avoid opiates, recommend tylenol - Advised to avoid THC products - Defer to ID for abx need. No obvious signs of significant colitis clinically. Pain is likely due to upper GI problems. <Robert North V - Last Filed: 12/12/17 23:36> Objective - Vital Signs/Intake and Output Vital Signs (last 24 hours): Temp Pulse Resp BP Pulse Ox 98 F 56 L 18 113/72 96 12/12/17 22:47 12/12/17 22:47 12/12/17 22:47 12/12/17 22:47 12/12/17 22:47 Intake and Output: 12/12/17 12/13/17 18:59 06:59 Intake Total 980 Balance 980 - Medications Medications: Current Medications Acetaminophen (Tylenol 325mg Tab) 650 mg PO TID PRN PRN Reason: Fever >100.4 F Last Admin: 12/12/17 21:05 Dose: 650 mg Hydromorphone HCl (Dilaudid) 0.5 mg IVP Q6H PRN PRN Reason: Pain, severe (8-10) Hydromorphone HCl (Dilaudid) 1 mg IVP Q4H PRN PRN Reason: Pain, Mild (1-3) Last Admin: 12/12/17 17:07 Dose: 1 mg Metronidazole (Flagyl) 500 mg in 100 mls @ 100 mls/hr IVPB Q8 [facility]; Protocol Last Admin: 12/12/17 21:49 Dose: 100 mls/hr Ceftriaxone Sodium (Rocephin 1 Gram Ivpb) 1 gm in 100 mls @ 100 mls/hr IVPB DAILY [facility]; Protocol Last Admin: 12/12/17 09:43 Dose: 100 mls/hr Ondansetron HCl (Zofran Inj) 4 mg IVP Q6H PRN PRN Reason: Nausea/Vomiting Last Admin: 12/12/17 19:15 Dose: 4 mg Pantoprazole Sodium (Protonix Inj) 40 mg IVP DAILY [facility] Last Admin: 12/12/17 09:43 Dose: 40 mg Sucralfate (Carafate Oral Susp) 1 gm PO 0600,1600 [facility] Last Admin: 12/12/17 16:11 Dose: 1 gm - Labs Labs: 12/12/17 05:00 12/12/17 05:00 Attending/Attestation - Attestation I have personally seen and examined this patient.: Yes I have fully participated in the care of the patient.: Yes I have reviewed all pertinent clinical information, including history, physical exam and plan: Yes Notes (Text): This is an addendum to GI progress report dictated by the GI Fellow.The patient was seen and examined earlier. Medical records, lab studies, imagings were reviewed. Last 24 hours events reviewed. Agreed with the above treatment plan as outlined in GI Fellow 's notes with the addition of the following Abdominal pain is improving On examination abdomen soft mild tenderness in epigastric area and deep palpation Will advance the diet if the patient is tolerating the diet Endoscopic reports pending If the patient is not able to tolerate the diet or the EGD report shows any significant findings then would consider repeating the EGD Patient will be kept on NPO after clear liquid breakfast in AM 12/12/17 23:33
[2017-12-12] MEDS: HYDROmorphone 1 mg/ml ISec IVP PRN (17:07)
[2017-12-13] MEDS: ERYthromycin Base 250 MG DR Cap PO SCH ×4 (00:13→17:57)
--- NOTE | 2017-12-13 02:13 | PN ---
DATE: 12/12/2017 SUBJECTIVE: The patient is a 27-year-old male. Patient is seen and examined at the bedside on 12/12/2017. Looking comfortable. Abdominal pain is getting better especially in the epigastric area. Tolerated diet very well without emesis or diarrhea as per nursing staff. Late evening, he has headache and Tylenol given. Otherwise, no fever, no chills. Has two to three times bowel movements, but no blood, is slight liquidy. PHYSICAL EXAMINATION: VITAL SIGNS: Temperature 97.4, pulse 61, respiratory rate 20, blood pressure 129/78, pulse oximetry 95%. HEENT: Head: Normocephalic, atraumatic. Eyes: PERRLA. Extraocular muscles intact. Conjunctivae clear. Nose patent. NECK: Supple. No carotid bruit. No JVD or thyromegaly. CHEST: Bilaterally symmetrical. HEART: S1 and S2 positive. LUNGS: Clear to auscultation. ABDOMEN: Soft. Bowel sounds positive. No organomegaly. EXTREMITIES: No edema. No cyanosis. NEUROLOGICAL: Patient is awake and alert. Moving all four extremities. No focal deficits. MEDICATIONS: Hydromorphone, Flagyl, Rocephin, Zofran, Protonix, Carafate. LABORATORY DATA: White blood cell 9.3, hemoglobin 14.6, hematocrit 44.6, platelets 350. Sodium 141, potassium 3.8, BUN 17, creatinine 1. Glucose 86. ASSESSMENT AND PLAN: Mr. Shyla Martel is a 27-year-old male came with abdominal pain, seen by the physical optics teacher, history of gastritis, stomach ulcer, 2 to 3 days of vomiting associated with epigastric pain, now has improved, pain is better, tolerating food very well. Today has 3 to 4 times diarrhea. Otherwise, no fever, no chills. Has headache, Tylenol was given. As per Dr. North, patient already has three endoscopies and colonoscopy also. Discussion done with Dr. North. Continue present treatment. Repeat labs. Gastrointestinal and deep venous thrombosis prophylaxes. Leukocytosis is better. We will follow up. Charlotte Brenner MD [facility] # [id number]
[2017-12-13] MEDS: Sucralfate 1 gm/10 ml Oral Susp UD PO SCH ×2 (06:19→17:57)
[2017-12-13] MEDS: metroNIDAZOLE IV 500 mg/100 ml 500 MG/100 ML BAG IVPB SCH ×3 (06:20→21:57)
[2017-12-13] MEDS: cefTRIAXone 1 gm 1 GM/100 ML BAG IVPB SCH (11:02)
--- NOTE | 2017-12-13 12:05 | CP.PCM.PN ---
Subjective - Date & Time of Evaluation Date of Evaluation: 12/13/17 Time of Evaluation: 12:03 - Subjective Subjective: Patient tried turkey last night and it did not stay down. He is able to tolerate liquid foods. Otherwise improving, less abdominal pain. No bleeding. No diarrhea. EGD/CSPY reports are not available yet after discussing with nursing staff. Objective - Vital Signs/Intake and Output Vital Signs (last 24 hours): Temp Pulse Resp BP Pulse Ox 97.8 F 56 L 16 111/58 L 100 12/13/17 06:00 12/13/17 06:00 12/13/17 06:00 12/13/17 06:00 12/13/17 06:00 Intake and Output: 12/13/17 12/13/17 06:59 18:59 Intake Total 400 Balance 400 - Medications Medications: Current Medications Acetaminophen (Tylenol 325mg Tab) 650 mg PO TID PRN PRN Reason: Fever >100.4 F Last Admin: 12/12/17 21:05 Dose: 650 mg Hydromorphone HCl (Dilaudid) 0.5 mg IVP Q6H PRN PRN Reason: Pain, severe (8-10) Hydromorphone HCl (Dilaudid) 1 mg IVP Q4H PRN PRN Reason: Pain, Mild (1-3) Last Admin: 12/12/17 17:07 Dose: 1 mg Metronidazole (Flagyl) 500 mg in 100 mls @ 100 mls/hr IVPB Q8 [facility]; Protocol Last Admin: 12/13/17 06:20 Dose: 100 mls/hr Ceftriaxone Sodium (Rocephin 1 Gram Ivpb) 1 gm in 100 mls @ 100 mls/hr IVPB DAILY [facility]; Protocol Last Admin: 12/13/17 11:02 Dose: 100 mls/hr Ondansetron HCl (Zofran Inj) 4 mg IVP Q6H PRN PRN Reason: Nausea/Vomiting Last Admin: 12/12/17 19:15 Dose: 4 mg Pantoprazole Sodium (Protonix Inj) 40 mg IVP DAILY [facility] Last Admin: 12/13/17 11:01 Dose: 40 mg Sucralfate (Carafate Oral Susp) 1 gm PO 0600,1600 [facility] Last Admin: 12/13/17 06:19 Dose: 1 gm - Labs Labs: 12/12/17 05:00 12/12/17 05:00 - Constitutional Appears: Well, Non-toxic - Head Exam Head Exam: NORMAL INSPECTION - Eye Exam Eye Exam: Normal appearance - Respiratory Exam Respiratory Exam: Clear to Ausculation Bilateral, NORMAL BREATHING PATTERN - Cardiovascular Exam Cardiovascular Exam: REGULAR RHYTHM, +S1, +S2 - GI/Abdominal Exam GI & Abdominal Exam: Soft, Normal Bowel Sounds. absent: Tenderness - Extremities Exam Extremities Exam: Normal Inspection - Neurological Exam Neurological Exam: Alert, Awake, Oriented x3 - Psychiatric Exam Psychiatric exam: Normal Affect, Normal Mood - Skin Skin Exam: Dry, Normal Color Assessment and Plan - Assessment and Plan (Free Text) Assessment: 27 y/o M 2 year hx gastritis, stomach ulcer p/w 2-3d of vomiting associated with epigastric pain. #Vomiting; Epigastric pain: CTAP with possible pancolitis vs underdistention. Slightly elevated WBC however possible hemoconcentration. Vitals stable., Hgb/Hct stable, unlikely UGIB. Broad differential for intractable nausea/vomiting. Would continue current treatment for infectious colitis given labwork and CT. Possible gastritis/ulcer given history, would like to obtain collateral from prior EGDs (most recent 08/2017) prior to further endoscopic evaluation. No new meds. Unlikely SBO however gastroparesis on differential. If prior egds and workup normal from recent hospitalizations, would consider cannabinoid hyperemesis syndrome as symptoms correlate with marijuana use and improvement with hot showers. Topical capsaicin (around umbilicus) has been shown to improve symptoms in case studies, could consider. Plan: - Obtain collateral/other records+EGDs from [facility]/Dr. Reyes - Continue antiemetics as needed.. Continue carafate to help soothe the stomach. Erythromycin to promote motility. - Stomach pain is likely from hx of gastritis/PUD or from retching. - NPO. Instructed to take small drinks every 15 minutes, to sit up and walk around nurses station to help motility. - Avoid opiates, currently on dilaudid 1 mg which may make n/v worse. Recommend Tylenol - Advised to avoid THC products - Defer to order physician for abx need. No obvious signs of colitis clinically, would recommend discontinuing. Pain is likely due to upper GI problems. - EGD today.
[2017-12-13] MEDS ORDERED: Sodium Chloride 0.9% 1,000 ML IV SCH (15:30)
[2017-12-13] MEDS ORDERED: Propofol 10 mg/ml Inj (20 ML) ONE (15:36)
[2017-12-13 17:32] VITALS: RESP 20
[2017-12-13] MEDS: HYDROmorphone 1 mg/ml ISec IVP PRN (23:20)
[2017-12-14] MEDS: ERYthromycin Base 250 MG DR Cap PO SCH ×2 (00:05→05:59)
--- NOTE | 2017-12-14 04:18 | PN ---
DATE: 12/13/2017 SUBJECTIVE: The patient was seen and examined on the bedside on 12/13/2017, looking comfortable. No nausea, vomiting, or diarrhea. No hematuria or hematochezia. According to the patient, he had vomiting last night after supper, after that he is n.p.o. and today he has diarrhea at least 3-4 times. I spoke to Dr. North. The patient went for endoscopy. PHYSICAL EXAMINATION: VITAL SIGNS: Temperature 98.6, pulse 50, respiratory rate 16, blood pressure 123/76. HEENT: Head: Normocephalic, atraumatic. Eyes: PERRLA. Extraocular muscles intact. Conjunctivae clear. Nose patent. Mucous membrane moist. NECK: Supple. No carotid bruit. No JVD or thyromegaly. CHEST: Bilaterally symmetrical. HEART: S1 and S2 positive. LUNGS: Clear to auscultation. ABDOMEN: Soft. Bowel sounds present. No organomegaly. EXTREMITIES: No edema. No cyanosis. NEUROLOGIC: The patient is awake and alert. Moving all 4 extremities. No focal deficits. MEDICATIONS: Carafate, Dilaudid, Flagyl, Protonix, Rocephin, NS, Tylenol, Zofran. LABORATORY DATA: White blood cells 9.3, hematocrit 14.6, hematocrit 44.6, platelets 350. ASSESSMENT AND PLAN: Mr. Shyla Martel is a 27-year-old male with history of leukocytosis, improved; history of hyperglycemia; proteinuria; history of marijuana abuse, went for endoscopy by Dr. North. The patient has gastritis, duodenitis, may be overuse of drug abuse. According to the patient, Carafate is helping his stomach. History of gastritis and stomach ulcers. Today epigastric pain is better. CAT scan showing pancolitis versus undistention, slightly elevated white blood cell is improving. Vitals are stable. Discussion done with Dr. North with advanced diet. Avoid opioid, recommended Tylenol. Try to avoid Nsaid products. We will follow up. Charlotte Brenner MD [facility]
[2017-12-14] MEDS: metroNIDAZOLE IV 500 mg/100 ml 500 MG/100 ML BAG IVPB SCH (05:59)
[2017-12-14 09:01] VITALS: BP 157/84; PULSE 54; TEMP 98; O2SAT 99
--- NOTE | 2017-12-14 09:50 | CP.PCM.PN ---
<Yohan Diaz - Last Filed: 12/14/17 09:46> Subjective - Date & Time of Evaluation Date of Evaluation: 12/14/17 Time of Evaluation: 09:46 - Subjective Subjective: About the same. 1 episode non bloody emesis last night. He is having small watery BMs post-prandial. Objective - Vital Signs/Intake and Output Vital Signs (last 24 hours): Temp Pulse Resp BP Pulse Ox 98 F 54 L 20 157/84 H 99 12/14/17 07:00 12/14/17 07:00 12/14/17 07:00 12/14/17 07:00 12/14/17 07:00 - Medications Medications: Current Medications Acetaminophen (Tylenol 325mg Tab) 650 mg PO TID PRN PRN Reason: Fever >100.4 F Last Admin: 12/12/17 21:05 Dose: 650 mg Metronidazole (Flagyl) 500 mg in 100 mls @ 100 mls/hr IVPB Q8 [facility]; Protocol Last Admin: 12/14/17 05:59 Dose: 100 mls/hr Ondansetron HCl (Zofran Inj) 4 mg IVP Q6H PRN PRN Reason: Nausea/Vomiting Last Admin: 12/13/17 23:20 Dose: 4 mg Pantoprazole Sodium (Protonix Ec Tab) 20 mg PO 0600 [facility] Sucralfate (Carafate Tab) 1 gm PO 0630,1130,1630,2200 [facility] - Labs Labs: 12/12/17 05:00 12/12/17 05:00 - Constitutional Appears: Non-toxic, No Acute Distress - Eye Exam Eye Exam: Normal appearance - Respiratory Exam Respiratory Exam: Clear to Ausculation Bilateral - Cardiovascular Exam Cardiovascular Exam: REGULAR RHYTHM - GI/Abdominal Exam GI & Abdominal Exam: Soft, Normal Bowel Sounds. absent: Tenderness - Extremities Exam Extremities Exam: Full ROM - Neurological Exam Neurological Exam: Alert, Awake, Oriented x3 - Psychiatric Exam Psychiatric exam: Normal Affect, Normal Mood - Skin Skin Exam: Normal Color Assessment and Plan - Assessment and Plan (Free Text) Assessment: 27 y/o M 2 year hx gastritis, stomach ulcer p/w 2-3d of vomiting associated with epigastric pain. #Vomiting; Epigastric pain: CTAP with possible pancolitis vs underdistention. Slightly elevated WBC however possible hemoconcentration. Vitals stable., Hgb/Hct stable, unlikely UGIB. Broad differential for intractable nausea/vomiting. Would continue current treatment for infectious colitis given labwork and CT. Possible gastritis/ulcer given history, would like to obtain collateral from prior EGDs (most recent 08/2017) prior to further endoscopic evaluation. No new meds. Unlikely SBO however gastroparesis on differential. If prior egds and workup normal from recent hospitalizations, would consider cannabinoid hyperemesis syndrome as symptoms somewhat correlate with marijuana use and improvement with hot showers. Topical capsaicin (around umbilicus) has been shown to improve symptoms in case studies, could consider. Plan: - EGD 12/13/17. No significant findings. Patient had very reactive airways making procedure difficult. - Obtain collateral/other records+EGDs from [facility]/Dr. Reyes - Continue antiemetics. Continue carafate to help soothe the stomach. - Stomach pain is likely from retching. - Advance to full liquid diet, instructed to take small drinks every 15 minutes, to sit up and walk around nurses station to help motility. - Avoid opiates, recommend tylenol - Advised to avoid THC products - Stop ceftriaxone. Flagyl ok. No obvious signs of significant colitis clin ically. Pain is likely due to upper GI problems. - Recommend d/c from GI perspective. Follow up with Dr. Reyes as outpt. <Robert North V - Last Filed: 12/15/17 00:10> Objective - Vital Signs/Intake and Output Vital Signs (last 24 hours): Temp Pulse Resp BP Pulse Ox 98 F 54 L 20 157/84 H 99 12/14/17 07:00 12/14/17 07:00 12/14/17 07:00 12/14/17 07:00 12/14/17 07:00 - Labs Labs: 12/12/17 05:00 12/12/17 05:00 Attending/Attestation - Attestation I have personally seen and examined this patient.: Yes I have fully participated in the care of the patient.: Yes I have reviewed all pertinent clinical information, including history, physical exam and plan: Yes Notes (Text): This is an addendum to GI progress report dictated by the GI Fellow.The patient was seen and examined earlier. Medical records, lab studies, imagings were rev iewed. Last 24 hours events reviewed. Agreed with the above treatment plan as outlined in GI Fellow 's notes with the addition of the following 12/15/17 00:10
[2017-12-15] MEDS ORDERED: Pantoprazole 20 mg EC Tab PO SCH (06:00)
== END 2017-12-14 15:54 | disposition home or self-care (01) | DRG 392 ==
LOC: ED 18:02 → ERH 23:06 → 5RNO 12-10 00:23
PROVIDERS: ADMIT Internal Medicine; ATTEND Internal Medicine
PROC: 0DB68ZX Excision of Stomach, Via Natural or Artificial Opening Endoscopic, Diagnostic (ICD-10-PCS; principal; 2017-12-13 14:00)
DX: K52.9 Noninfective gastroenteritis and colitis, unspecified (principal); K29.80 Duodenitis without bleeding; K29.50 Unspecified chronic gastritis without bleeding; F12.90 Cannabis use, unspecified, uncomplicated; F17.210 Nicotine dependence, cigarettes, uncomplicated; R11.10 Vomiting, unspecified; Z87.11 Personal history of peptic ulcer disease